=== PATIENT | female | born 1965 | race Two or more races ===

== ENCOUNTER 2016-11-02 13:47 | Inpatient (IN) | payer OTHER ==
[2016-11-02 18:24] VITALS: BMI 37.9
--- NOTE | 2016-11-02 19:44 | HP ---
CIWA Score - CIWA Score Nausea/Vomitin-Mild Nausea/No Vomiting Muscle Tremors: 4-Moderate,w/Arms Extend Anxiety: 4-Mod. Anxious/Guarded Agitation: 4-Moderately Restless Paroxysmal Sweats: 1-Minimal Palms Moist Orientation: 1-Uncertain about Date Tacttile Disturbances: 0-None Auditory Disturbances: 0-None Visual Disturbances: 0-None Headache: 1-Very Mild CIWA-Ar Total Score: 16 Admission ROS BHS - HPI Chief Complaint: WITHDRAWAL SX Allergies/Adverse Reactions: Allergies Allergy/AdvReac Type Severity Reaction Status Date / Time Penicillins Allergy Severe Swelling Verified 11/02/16 19:16 History of Present Illness: 50 YEARS OLD FEMALE WITH LONG HISTORY OF ALCOHOL NICOTINE DEPENDENCE, HAS HYPERTENSION DIABETES II GERD HYPERCHOLESTERLEMIA 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, HAS SCHIZOPHRENIA IS ADMITTED TO DETOX Exam Limitations: No Limitations - Ebola screening Have you traveled outside of the country in the last 21 days: No Have you had contact with anyone from an Ebola affected area: No Have you been sick,other than usual withdrawal symptoms: No Do you have a fever: No - Review of Systems Constitutional: Chills, Changes in sleep, Weight Stable EENT: reports: No Symptoms Reported Respiratory: reports: SOB with Exertion, Productive cough (YELLOWISH) Cardiac: reports: No Symptoms Reported GI: reports: Nausea, Poor Fluid Intake, Indigestion, Abdominal cramping : reports: No Symptoms Reported Musculoskeletal: reports: Back Pain, Joint Pain, Muscle Pain, Neck Pain (LEGS) Integumentary: reports: Rash (UNDER BOTH BREASTS) Neuro: reports: Tremors Endocrine: reports: No Symptoms Reported Hematology: reports: No Symptoms Reported Psychiatric: reports: Judgement Intact, Anxious, Depressed Other Systems: Reviewed and Negative Patient History - Patient Medical History Hx Anemia: No Hx Asthma: No Hx Chronic Obstructive Pulmonary Disease (COPD): No Hx Cancer: No Hx Cardiac Disorders: No Hx Congestive Heart Failure: No Hx Hypertension: Yes Hx Hypercholesterolemia: Yes Hx Pacemaker: No HX Cerebrovascular Accident: No Hx Seizures: No Hx Dementia: No Hx Diabetes: Yes Hx Gastrointestinal Disorders: Yes Hx Liver Disease: No Hx Genitourinary Disorders: No Hx Sexually Transmitted Disorders: No Hx Renal Disease (ESRD): No Hx Thyroid Disease: No Hx Human Immunodeficiency Virus (HIV): No Hx Hepatitis C: No Hx Depression: No Hx Suicide Attempt: No Hx Bipolar Disorder: No Hx Schizophrenia: Yes Other Medical History: OVARY CYST AND OVARIES REMOVED 2012 - Patient Surgical History Past Surgical History: Yes Hx Neurologic Surgery: No Hx Cataract Extraction: No Hx Cardiac Surgery: No Hx Lung Surgery: Yes (SCHEDULE FOR LEFTLOWER LUNG REMOVE AFTER DETOX) Hx Breast Surgery: No Hx Breast Biopsy: No Hx Abdominal Surgery: No Hx Appendectomy: No Hx Cholecystectomy: No Hx Genitourinary Surgery: No Hx Section: No Hx Orthopedic Surgery: No Hx Hysterectomy: No Other Surgical History: OVARIES REMOVED 2011 Anesthesia Reaction: No - PPD History Previous Implant?: Yes Documented Results: Negative w/o proof Implanted On Prior [facility] Admission?: No PPD to be Administered?: Yes - Reproductive History Patient is a Female of Child Bearing Age (11 -55 yrs old): Yes Last Menstrual Period: 11/01/09 Patient : No - Smoking Cessation Smoking history: Current every day smoker Have you smoked in the past 12 months: Yes Aproximately how many cigarettes per day: 20 Cigars Per Day: 0 Hx Chewing Tobacco Use: No Initiated information on smoking cessation: Yes 'Breaking Loose' booklet given: 11/02/16 - Substance & Tx. History Hx Alcohol Use: Yes Hx Substance Use: Yes Substance Use Type: Alcohol, Marijuana Hx Substance Use Treatment: Yes - Substances Abused Alcohol Route: Oral Frequency: Daily Amount used: liquor- 3 pints Age of first use: 10 Date of Last Use: 11/01/16 Family Disease History - Family Disease History Family Disease History: Diabetes: Father (), Mother, Heart Disease: Father, Mother, Other: Father, Mother, Brother (HIV) Admission Physical Exam S - Vital Signs Vital Signs: Vital Signs - 24 hr 11/02/16 18:20 Temperature 98.2 F Pulse Rate 93 H Respiratory 20 Rate Blood Pressure 164/87 - Physical General Appearance: Yes: Appropriately Dressed, Mild Distress, Obese, Tremorous , Irritable, Sweating, Anxious HEENTM: Yes: Hearing grossly Normal, Normal ENT Inspection, Normocephalic, Normal Voice Respiratory: Yes: Chest Non-Tender, Lungs Clear, Normal Breath Sounds, No Respiratory Distress, No Accessory Muscle Use Neck: Yes: Supple, Trachea in good position Breast: Yes: Breasts Symetrical Cardiology: Yes: Regular Rhythm, S1, S2, Tachycardia Abdominal: Yes: Non Tender, Soft Genitourinary: Yes: Within Normal Limits Back: Yes: Normal Inspection Musculoskeletal: Yes: full range of Motion, Gait Steady, Back pain, Muscle Pain (RIGHT KNEE) Extremities: Yes: Normal Inspection, Normal Range of Motion, Non-Tender, Tremors Neurological: Yes: Alert, Motor Strength 5/5, Normal Response, Depressed Affect Integumentary: Yes: Warm, Rash (UNDER BOTH BREATHS) Lymphatic: Yes: Within Normal Limits - Diagnostic (1) Alcohol dependence with uncomplicated withdrawal Current Visit: Yes Status: Acute (2) Diabetes mellitus type II, controlled Current Visit: Yes Status: Chronic Qualifiers: Diabetes mellitus complication status: with neurologic complications Diabetes mellitus complication detail: with other neurological complication Diabetes mellitus superintendent container terminal insulin use: with superintendent container terminal use Qualified Code(s): E11.49 - Type 2 diabetes mellitus with other diabetic neurological complication; Z79.4 - terminal system operator (current) use of insulin (3) Hypertension Current Visit: Yes Status: Chronic Qualifiers: Hypertension type: essential hypertension Qualified Code(s): I10 - Essential (primary) hypertension (4) GERD (gastroesophageal reflux disease) Current Visit: Yes Status: Chronic Qualifiers: Esophagitis presence: without esophagitis Qualified Code(s): K21.9 - Gastro-esophageal reflux disease without esophagitis (5) Hyperlipidemia Current Visit: Yes Status: Chronic Qualifiers: Hyperlipidemia type: pure hypercholesterolemia Qualified Code(s): E78.00 - Pure hypercholesterolemia, unspecified; E78.0 - Pure hypercholesterolemia (6) Neuropathy Current Visit: Yes Status: Chronic (7) Lung cancer Current Visit: Yes Status: Chronic Qualifiers: Laterality: left Lung location: lower lobe of lung Qualified Code(s): C34.32 - Malignant neoplasm of lower lobe, left bronchus or lung Comment: SCHEDULED TO HAVE SURGICAL REMOVE AFTER DETOX (8) Nicotine dependence Current Visit: Yes Status: Acute Qualifiers: Nicotine product type: cigarettes Substance use status: in withdrawal Qualified Code(s): F17.213 - Nicotine dependence, cigarettes, with withdrawal (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
[2016-11-02] MEDS ORDERED: MENTHOL/PHENOL 1 EACH UD MM PRN (19:51)
[2016-11-02] MEDS ORDERED: MAG HYDROX/AL HYDROX/SIMETH 30 ML UNIT-DOSE CUP PO PRN (19:51)
[2016-11-02] MEDS ORDERED: NICOTINE POLACRILEX 4 MG GUM BUC PRN (19:51)
[2016-11-02] MEDS ORDERED: guaiFENesin/D-METHORPHAN HB 10 ML UNIT-DOSE CUPS PO PRN (19:51)
[2016-11-02] MEDS ORDERED: hydrOXYzine PAMOATE 50 MG CAPSULE (FP) PO PRN (19:51)
[2016-11-02] MEDS ORDERED: chlordiazePOXIDE HCL 25 MG CAPSULE PO PRN (19:51)
[2016-11-02] MEDS ORDERED: diphenhydrAMINE HCL 50 MG CAPSULE PO PRN (19:51)
[2016-11-02] MEDS ORDERED: LOPERAMIDE HCL 2 MG CAPSULE PO PRN (19:51)
[2016-11-02] MEDS ORDERED: P-EPHED 60MG/TRIPROLIDI 2.5MG TABLET PO PRN (19:51)
[2016-11-02] MEDS ORDERED: MAGNESIUM HYDROX 2400MG/30ML ORAL SUSPENSION 30 ML CUP PO PRN (19:51)
[2016-11-02] MEDS ORDERED: MAGNESIUM CITRATE 300 ML BOTTLE PO PRN (19:51)
[2016-11-02] MEDS ORDERED: GABAPENTIN 300 MG CAPSULE (FP) PO SCH (20:00)
[2016-11-02] MEDS ORDERED: ATORVASTATIN CA 40 MG TABLET (FP) ONE (21:40)
[2016-11-02] MEDS: RANITIDINE HCL 150 MG TABLET (FP) PO SCH (22:47)
[2016-11-02] MEDS: chlordiazePOXIDE HCL 25 MG CAPSULE PO SCH (22:47)
[2016-11-02] MEDS: DOCUSATE SODIUM 100 MG CAPSULE (FP) PO SCH (22:47)
[2016-11-02] MEDS: THIAMINE HCL 100 MG TABLET (FP) PO SCH (22:47)
[2016-11-02] MEDS: ACETAMINOPHEN 325 MG TABLET (FP) PO PRN (22:48)
[2016-11-02] MEDS: ATORVASTATIN CA 80 MG TABLET (FP) PO SCH (22:51)
[2016-11-02] MEDS: CLOTRIMAZOLE 1% CREAM 15 GM TUBE TP SCH (22:51)
[2016-11-03 01:52] LABS: URINE APPEARANCE CLEAR; URINE BLOOD NEGATIVE (NEGATIVE); URINE COLOR AMBER; URINE GLUCOSE (UA) 1+ (NEGATIVE); URINE KETONE TRACE (NEGATIVE); URINE LEUK ESTERASE NEGATIVE (NEGATIVE); URINE NITRITE NEGATIVE (NEGATIVE); URINE UROBILINOGEN 4.0 E.U/dl E.U./dl (0.2-1.0)
[2016-11-03 03:04] LABS: URINE PROTEIN 3+ (NEGATIVE)
[2016-11-03 03:09] LABS: URINE BACTERIA RARE /hpf (NONE SEEN); URINE MUCUS MODERATE; URINE RBC 3 /hpf (0-3); URINE WBC 12 /hpf (3-5)
[2016-11-03] MEDS: NAPROXEN 500 MG TABLET (FP) PO PRN ×2 (04:47→22:57)
[2016-11-03] MEDS: GABAPENTIN 300 MG CAPSULE (FP) PO SCH ×3 (05:50→22:58)
[2016-11-03] MEDS: chlordiazePOXIDE HCL 25 MG CAPSULE PO SCH ×4 (05:50→22:57)
[2016-11-03] MEDS: INSULIN SLIDING SCALE (NOVOLOG) 1 VIAL SQ SCH ×2 (07:32→17:59)
[2016-11-03 10:41] LABS: MCH 31.9 pg (25.7-33.7); MCHC 33.6 g/dl (32.0-36.0); MEAN CELL VOLUME 95.2 fl (80-96); MEAN PLT VOLUME 9.2 fl (7.5-11.1); PLATELET COUNT 174 K/MM3 (134-434); WHITE BLOOD COUNT 9.1 K/mm3 (4.0-10.0)
[2016-11-03] MEDS: ASPIRIN 81 MG CHEWABLE TABLETS PO SCH (10:52)
[2016-11-03] MEDS: PRENATAL VITAMINS W/ FOLIC ACID TABLET (FP) PO SCH (10:52)
[2016-11-03] MEDS: RANITIDINE HCL 150 MG TABLET (FP) PO SCH ×2 (10:52→22:57)
[2016-11-03] MEDS: DOCUSATE SODIUM 100 MG CAPSULE (FP) PO SCH ×2 (10:53→22:57)
[2016-11-03] MEDS: ACETAMINOPHEN 325 MG TABLET (FP) PO PRN (10:54)
[2016-11-03] MEDS: NICOTINE 21 MG/24 HOURS TOPICAL PATCH TD SCH (10:55)
[2016-11-03 11:13] LABS: ALBUMIN 4.1 g/dl (3.4-5.0); BILIRUBIN,TOTAL 0.8 mg/dL (0.2-1.0); CALCIUM 8.8 mg/dL (8.5-10.1); COCKROFT - GAULT 84.031; CREATININE 1.2 mg/dL (0.55-1.02); TOT PROT 6.9 g/dl (6.4-8.2)
[2016-11-03] MEDS: OXYBUTYNIN CHLORIDE 5 MG TABLET PO SCH (11:47)
[2016-11-03] MEDS: CLOTRIMAZOLE 1% CREAM 15 GM TUBE TP SCH ×2 (11:48→22:56)
--- NOTE | 2016-11-03 17:00 | CONSULT ---
[facility] Psychiatric Consult - Data Date of interview: 11/03/16 Admission source: [facility] Identifying data: First admission to [facility] for this 50 y/o female seking detox treatment for alcohol and marijuana dependence.Patient is single,a mother of two,domiciled,unemployed and supported on SSI benefits. Substance Abuse History: - Smoking Cessation. Smoking history: Current every day smoker. Have you smoked in the past 12 months: Yes. Aproximately how many cigarettes per day: 20. Cigars Per Day: 0. Hx Chewing Tobacco Use: No. Initiated information on smoking cessation: Yes. 'Breaking Loose' booklet given : 11/02/16. - Substance & Tx. History. Hx Alcohol Use: Yes. Hx Substance Use : Yes. Substance Use Type: Alcohol, Marijuana. Hx Substance Use Treatment: Yes. - Substances Abused. Alcohol. Route: Oral. Frequency: Daily. Amount used: liquor- 3 pints. Age of first use: 10. Date of Last Use: . Confirmed by patient. Medical History: Diabetes mellitus,hypertension,GERD,vascular stasis (both lower extremities),neuropathy,hypercholesterolemia,lung cancer (self-report) and a history of bilateral oophorectomy (2011). Psychiatric History: Patient admits to a history of two psychiatric hospitalizations.Last hospitalized four years ago at [facility].Known also to [place].Ms Delacruz reports the diagnosis of Schizophrenia.She " used to be " on risperdal 2 mg/day + trazodone 200 mg/hs + seroquel (dose not recalled).Patient is an unreliable/forgetful historian.She insists that she took her medications about a week ago.Current site of pychiatric OPD care : unclear.Patient denies history of suicde attempts. Physical/Sexual Abuse/Trauma History: patient denies history of abuse. Additional Comment: Urine Drug Screen Results: THC-Marijuana.Noted. Mental Status Exam - Mental Status Exam Alert and Oriented to: Time, Place, Person Cognitive Function: Grossly Intact Patient Appearance: Well Groomed Mood: Withdrawn, Anxious, Apprehensive Affect: Mood Congruent Patient Behavior: Fatigued, Cooperative Speech Pattern: Clear Voice Loudness: Normal Thought Process: Goal Oriented Thought Disorder: Not Present Hallucinations: Denies Suicidal Ideation: Denies Homicidal Ideation: Denies Insight/Judgement: Poor Sleep: Poorly, Difficulty falling asleep Appetite: Good Muscle strength/Tone: Normal Gait/Station: Other (uses a cane for ambulation) Psychiatric Findings - Problem List ([place] 1, 2,3) (1) Schizophrenia Current Visit: Yes Status: Chronic Qualifiers: Schizophrenia type: disorganized schizophrenia Qualified Code(s): F20.1 - Disorganized schizophrenia (2) Alcohol dependence with uncomplicated withdrawal Current Visit: Yes Status: Acute (3) Marijuana dependence Current Visit: Yes Status: Acute (4) Nicotine dependence Current Visit: Yes Status: Acute Qualifiers: Nicotine product type: cigarettes Substance use status: in withdrawal Qualified Code(s): F17.213 - Nicotine dependence, cigarettes, with withdrawal (5) Diabetes mellitus type II, controlled Current Visit: Yes Status: Chronic Qualifiers: Diabetes mellitus complication status: with neurologic complications Diabetes mellitus complication detail: with other neurological complication Diabetes mellitus gasket inspector insulin use: with group home use Qualified Code(s): E11.49 - Type 2 diabetes mellitus with other diabetic neurological complication (6) 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 Comment: UNDER BOTH BREASTS (7) GERD (gastroesophageal reflux disease) Current Visit: Yes Status: Chronic Qualifiers: Esophagitis presence: without esophagitis Qualified Code(s): K21.9 - Gastro-esophageal reflux disease without esophagitis (8) Hyperlipidemia Current Visit: Yes Status: Chronic Qualifiers: Hyperlipidemia type: pure hypercholesterolemia Qualified Code(s): E78.00 - Pure hypercholesterolemia, unspecified; E78.0 - Pure hypercholesterolemia (9) Hypertension Current Visit: Yes Status: Chronic Qualifiers: Hypertension type: essential hypertension Qualified Code(s): I10 - Essential (primary) hypertension (10) Lung cancer Current Visit: Yes Status: Chronic Qualifiers: Laterality: left Lung location: lower lobe of lung Qualified Code(s): C34.32 - Malignant neoplasm of lower lobe, left bronchus or lung Comment: SCHEDULED TO HAVE SURGICAL REMOVE AFTER DETOX (11) Neuropathy Current Visit: Yes Status: Chronic (12) Use of cane as ambulatory aid Current Visit: Yes Status: Chronic Comment: RIGHT LEG WEAKNESS (13) Insomnia Current Visit: Yes Status: Acute - Initial Treatment Plan Initial Treatment Plan: Psychoeducation.Detoxification.Review of pharmacy claims reveals scripts filled for trazodone,sertraline and risperdal on 08/28/16 @ [facility].Compliance remains questionable.Therefore will restart medications as follows : zoloft 50 mg po daily + risperdal 1 mg po bid + trazodone 50 mg po hs.Side effects/benefits of each drug are discussed with the patient.She endorses history of good tolerability/efficacy and she requests that these three drugs be added to the current regime.Observation.
[2016-11-03] MEDS: INSULIN DETEMIR 100 UNITS/ML MDV SQ SCH (17:47)
--- NOTE | 2016-11-03 18:51 | PN ---
S CIWA - CIWA Score Nausea/Vomitin Muscle Tremors: 4-Moderate,w/Arms Extend Anxiety: 2 Agitation: 4-Moderately Restless Paroxysmal Sweats: 3 Orientation: 0-Oriented Tacttile Disturbances: 0-None Auditory Disturbances: 2-Mild Harshness/Frighten Visual Disturbances: 0-None Headache: 3-Moderate CIWA-Ar Total Score: 21 BHS Progress Note (SOAP) Subjective: Lower Back Ache, Stomach Cramping, H/A, Body Aches. Objective: PT. A & O X 3, OBSERVED AMBULATING ON UNIT. 11/03/16 18:47 Vital Signs Temperature 98.2 F 11/03/16 18:28 Pulse Rate 62 11/03/16 18:28 Respiratory Rate 16 11/03/16 18:28 Blood Pressure 114/73 11/03/16 18:28 O2 Sat by Pulse Oximetry (%) Laboratory Tests 11/02/16 11/03/16 11/03/16 00:34 05:48 07:50 WBC 9.1 RBC 4.48 Hgb 14.3 Hct 42.7 MCV 95.2 MCHC 33.6 RDW 15.0 Plt Count 174 MPV 9.2 Sodium Potassium Chloride Carbon Dioxide Anion Gap BUN Creatinine Creat Clearance w eGFR POC Glucometer 174 Random Glucose Calcium Total Bilirubin AST ALT Alkaline Phosphatase Total Protein Albumin Urine Color Emani Urine Appearance Clear Urine pH 5.0 Ur Specific [place] > 1.030 H Urine Protein 3+ H Urine Glucose (UA) 1+ H Urine Ketones Trace H Urine Blood Negative Urine Nitrite Negative Urine Bilirubin 2.0 Urine Urobilinogen 4.0 e.u/dl H Ur Leukocyte Esterase Negative Urine RBC 3 Urine WBC 12 Ur Epithelial Cells Moderate Urine Bacteria Rare Urine Mucus Moderate RPR Titer 11/03/16 11/03/16 11/03/16 07:50 07:50 16:23 WBC RBC Hgb Hct MCV MCHC RDW Plt Count MPV Sodium 138 Potassium 4.0 Chloride 104 Carbon Dioxide 22 Anion Gap 12 BUN 25 H Creatinine 1.2 H Creat Clearance w eGFR 47.18 POC Glucometer 178 Random Glucose 163 H Calcium 8.8 Total Bilirubin 0.8 AST 18 ALT 20 Alkaline Phosphatase 94 Total Protein 6.9 Albumin 4.1 Urine Color Urine Appearance Urine pH Ur Specific [place] Urine Protein Urine Glucose (UA) Urine Ketones Urine Blood Urine Nitrite Urine Bilirubin Urine Urobilinogen Ur Leukocyte Esterase Urine RBC Urine WBC Ur Epithelial Cells Urine Bacteria Urine Mucus RPR Titer Nonreactive LABS NOTED. Assessment: 11/03/16 18:47 WITHDRAWAL SYMPTOMS. Plan: CONTINUE DETOX. REPEAT UA FOR ABNORMAL ADMISSION UA VALUES. D/C MAGNESIUM-CONTAINING MEDS. ADVISED PT. TO FOLLOW-UP WITH ROTARY SOIL STABILIZER OPERATOR AFTER DISCHARGE FROM DETOX FOR GENERAL MEDICAL ASSESSMENT AND FOR ABNORMAL ADMISSION RENAL VALUES (BUN, CREATININE, GFR ).
[2016-11-03] MEDS ORDERED: ATORVASTATIN CA 40 MG TABLET (FP) ONE (22:14)
[2016-11-03] MEDS: traZODone HCL 50 MG TABLET (FP) PO SCH (22:57)
[2016-11-03] MEDS: risperiDONE 1 MG TABLET (FP) PO SCH (23:25)
[2016-11-03] MEDS: THIAMINE HCL 100 MG TABLET (FP) PO SCH (23:25)
[2016-11-03] MEDS: ATORVASTATIN CA 80 MG TABLET (FP) PO SCH (23:25)
[2016-11-04] MEDS: chlordiazePOXIDE HCL 25 MG CAPSULE PO SCH ×3 (06:19→17:50)
[2016-11-04] MEDS: GABAPENTIN 300 MG CAPSULE (FP) PO SCH ×3 (06:20→22:13)
[2016-11-04] MEDS: INSULIN SLIDING SCALE (NOVOLOG) 1 VIAL SQ SCH ×2 (07:04→17:52)
[2016-11-04] MEDS: ASPIRIN 81 MG CHEWABLE TABLETS PO SCH (10:41)
[2016-11-04] MEDS: RANITIDINE HCL 150 MG TABLET (FP) PO SCH ×2 (10:41→22:13)
[2016-11-04] MEDS: PRENATAL VITAMINS W/ FOLIC ACID TABLET (FP) PO SCH (10:41)
[2016-11-04] MEDS: DOCUSATE SODIUM 100 MG CAPSULE (FP) PO SCH ×2 (10:41→22:13)
[2016-11-04] MEDS: NAPROXEN 500 MG TABLET (FP) PO PRN ×2 (10:41→22:13)
[2016-11-04] MEDS: CLOTRIMAZOLE 1% CREAM 15 GM TUBE TP SCH ×2 (10:42→22:16)
[2016-11-04] MEDS: OXYBUTYNIN CHLORIDE 5 MG TABLET PO SCH (10:42)
[2016-11-04] MEDS: SERTRALINE HCL 50 MG TABLET (FP) PO SCH (10:43)
[2016-11-04] MEDS: NICOTINE 21 MG/24 HOURS TOPICAL PATCH TD SCH (10:43)
[2016-11-04] MEDS: risperiDONE 1 MG TABLET (FP) PO SCH ×2 (14:04→22:13)
--- NOTE | 2016-11-04 14:11 | PN ---
[facility] CIWA - CIWA Score Nausea/Vomitin-No Nausea/No Vomiting Muscle Tremors: 4-Moderate,w/Arms Extend Anxiety: 3 Agitation: 3 Paroxysmal Sweats: 3 Orientation: 0-Oriented Tacttile Disturbances: 0-None Auditory Disturbances: 0-None Visual Disturbances: 0-None Headache: 0-None Present CIWA-Ar Total Score: 13 S Progress Note (SOAP) Subjective: Anxiety,tremors,sweating,interrupted sleep,restless Objective: 11/04/16 14:10 Vital Signs - 8 hr 11/04/16 11/04/16 11/04/16 06:48 11:11 13:40 Temperature 96.0 F L 97.3 F L 98.6 F Pulse Rate 71 91 H 88 Respiratory 18 20 18 Rate Blood Pressure 130/67 156/96 157/81 Laboratory Last Values WBC 9.1 K/mm3 (4.0-10.0) 11/03/16 07:50 RBC 4.48 M/mm3 (3.60-5.2) 11/03/16 07:50 Hgb 14.3 GM/dL (10.7-15.3) 11/03/16 07:50 Hct 42.7 % (32.4-45.2) 11/03/16 07:50 MCV 95.2 fl (80-96) 11/03/16 07:50 MCHC 33.6 g/dl (32.0-36.0) 11/03/16 07:50 RDW 15.0 % (11.6-15.6) 11/03/16 07:50 Plt Count 174 K/MM3 (134-434) 11/03/16 07:50 MPV 9.2 fl (7.5-11.1) 11/03/16 07:50 Sodium 138 mmol/L (136-145) 11/03/16 07:50 Potassium 4.0 mmol/L (3.5-5.1) 11/03/16 07:50 Chloride 104 mmol/L (98-107) 11/03/16 07:50 Carbon Dioxide 22 mmol/L (21-32) 11/03/16 07:50 Anion Gap 12 (8-16) 11/03/16 07:50 BUN 25 mg/dL (7-18) H 11/03/16 07:50 Creatinine 1.2 mg/dL (0.55-1.02) H 11/03/16 07:50 Creat Clearance w eGFR 47.18 (>60) 11/03/16 07:50 POC Glucometer 175 UNITS (()) 11/04/16 06:19 Random Glucose 163 mg/dL (74-106) H 11/03/16 07:50 Calcium 8.8 mg/dL (8.5-10.1) 11/03/16 07:50 Total Bilirubin 0.8 mg/dL (0.2-1.0) 11/03/16 07:50 AST 18 U/L (15-37) 11/03/16 07:50 ALT 20 U/L (12-78) 11/03/16 07:50 Alkaline Phosphatase 94 U/L (45-117) 11/03/16 07:50 Total Protein 6.9 g/dl (6.4-8.2) 11/03/16 07:50 Albumin 4.1 g/dl (3.4-5.0) 11/03/16 07:50 Urine Color Emani 11/02/16 00:34 Urine Appearance Clear 11/02/16 00:34 Urine pH 5.0 (5.0-8.0) 11/02/16 00:34 Ur Specific [place] > 1.030 (1.005-1.025) H 11/02/16 00:34 Urine Protein 3+ (NEGATIVE) H 11/02/16 00:34 Urine Glucose (UA) 1+ (NEGATIVE) H 11/02/16 00:34 Urine Ketones Trace (NEGATIVE) H 11/02/16 00:34 Urine Blood Negative (NEGATIVE) 11/02/16 00:34 Urine Nitrite Negative (NEGATIVE) 11/02/16 00:34 Urine Bilirubin 2.0 (NEGATIVE) 11/02/16 00:34 Urine Urobilinogen 4.0 e.u/dl E.U./dl (0.2-1.0) H 11/02/16 00:34 Ur Leukocyte Esterase Negative (NEGATIVE) 11/02/16 00:34 Urine RBC 3 /hpf (0-3) 11/02/16 00:34 Urine WBC 12 /hpf (3-5) 11/02/16 00:34 Ur Epithelial Cells Moderate /hpf (FEW) 11/02/16 00:34 Urine Bacteria Rare /hpf (NONE SEEN) 11/02/16 00:34 Urine Mucus Moderate 11/02/16 00:34 RPR Titer Nonreactive (NONREACTIVE) 11/03/16 07:50 labs noted,repeat u/a pending Assessment: 11/04/16 14:11 Withdrawal sx. Plan: Continue detox
[2016-11-04] MEDS: INSULIN DETEMIR 100 UNITS/ML MDV SQ SCH (17:50)
[2016-11-04 18:16] LABS: URINE APPEARANCE CLEAR; URINE BILIRUBIN NEGATIVE (NEGATIVE); URINE BLOOD NEGATIVE (NEGATIVE); URINE COLOR LTYELLOW; URINE GLUCOSE (UA) NEGATIVE (NEGATIVE); URINE KETONE NEGATIVE (NEGATIVE); URINE NITRITE NEGATIVE (NEGATIVE); URINE PROTEIN NEGATIVE (NEGATIVE); URINE UROBILINOGEN NEGATIVE E.U./dl (0.2-1.0)
[2016-11-04 18:41] LABS: URINE LEUK ESTERASE TRACE (NEGATIVE)
[2016-11-04 18:46] LABS: URINE BACTERIA RARE /hpf (NONE SEEN); URINE RBC 1 /hpf (0-3); URINE WBC 4 /hpf (3-5)
[2016-11-04] MEDS ORDERED: ATORVASTATIN CA 40 MG TABLET (FP) ONE (21:14)
[2016-11-04] MEDS: traZODone HCL 50 MG TABLET (FP) PO SCH (22:13)
[2016-11-04] MEDS: THIAMINE HCL 100 MG TABLET (FP) PO SCH (22:13)
[2016-11-04] MEDS: chlordiazePOXIDE 5 MG CAPSULE PO SCH (22:14)
[2016-11-04] MEDS: ATORVASTATIN CA 80 MG TABLET (FP) PO SCH (22:14)
[2016-11-05] MEDS: chlordiazePOXIDE 5 MG CAPSULE PO SCH ×3 (06:23→17:49)
[2016-11-05] MEDS: GABAPENTIN 300 MG CAPSULE (FP) PO SCH ×3 (06:24→22:13)
[2016-11-05] MEDS: INSULIN SLIDING SCALE (NOVOLOG) 1 VIAL SQ SCH ×2 (07:05→17:49)
[2016-11-05] MEDS: DOCUSATE SODIUM 100 MG CAPSULE (FP) PO SCH ×2 (10:28→22:12)
[2016-11-05] MEDS: ASPIRIN 81 MG CHEWABLE TABLETS PO SCH (10:28)
[2016-11-05] MEDS: PRENATAL VITAMINS W/ FOLIC ACID TABLET (FP) PO SCH (10:28)
[2016-11-05] MEDS: OXYBUTYNIN CHLORIDE 5 MG TABLET PO SCH (10:28)
[2016-11-05] MEDS: SERTRALINE HCL 50 MG TABLET (FP) PO SCH (10:28)
[2016-11-05] MEDS: CLOTRIMAZOLE 1% CREAM 15 GM TUBE TP SCH ×2 (10:29→22:16)
[2016-11-05] MEDS: NICOTINE 21 MG/24 HOURS TOPICAL PATCH TD SCH (10:30)
[2016-11-05] MEDS: risperiDONE 1 MG TABLET (FP) PO SCH ×2 (10:48→22:13)
[2016-11-05] MEDS: RANITIDINE HCL 150 MG TABLET (FP) PO SCH ×2 (10:48→22:13)
--- NOTE | 2016-11-05 11:34 | EKG ---
Test Reason : Blood Pressure : / mmHG Vent. Rate : 065 BPM Atrial Rate : 065 BPM P-R Int : 132 ms QRS Dur : 090 ms QT Int : 402 ms P-R-T Axes : 053 014 -02 degrees QTc Int : 418 ms NORMAL SINUS RHYTHM POSSIBLE LEFT ATRIAL ENLARGEMENT BORDERLINE ECG NO PREVIOUS ECGS AVAILABLE Confirmed by MAYDA STOCKTON, FARNAZ ([id number]) on 11/05/2016 11:34:00 AM Referred By: Confirmed By:FARNAZ OHARA MD
--- NOTE | 2016-11-05 14:59 | PN ---
BHS Progress Note (SOAP) Subjective: Tremors, Lower Back Ache, H/A, Body Aches. Objective: PT. A & O X 3, OBSERVED AMBULATING ON UNIT. NO ACUTE DISTRESS. 11/05/16 14:57 Vital Signs Temperature 97.0 F L 11/05/16 10:09 Pulse Rate 104 H 11/05/16 10:09 Respiratory Rate 20 11/05/16 10:09 Blood Pressure 150/97 11/05/16 10:09 O2 Sat by Pulse Oximetry (%) Laboratory Tests 11/02/16 11/03/16 11/03/16 00:34 05:48 07:50 WBC 9.1 RBC 4.48 Hgb 14.3 Hct 42.7 MCV 95.2 MCHC 33.6 RDW 15.0 Plt Count 174 MPV 9.2 Sodium Potassium Chloride Carbon Dioxide Anion Gap BUN Creatinine Creat Clearance w eGFR POC Glucometer 174 Random Glucose Calcium Total Bilirubin AST ALT Alkaline Phosphatase Total Protein Albumin Urine Color Emani Urine Appearance Clear Urine pH 5.0 Ur Specific [place] > 1.030 H Urine Protein 3+ H Urine Glucose (UA) 1+ H Urine Ketones Trace H Urine Blood Negative Urine Nitrite Negative Urine Bilirubin 2.0 Urine Urobilinogen 4.0 e.u/dl H Ur Leukocyte Esterase Negative Urine RBC 3 Urine WBC 12 Ur Epithelial Cells Moderate Urine Bacteria Rare Urine Mucus Moderate RPR Titer 11/03/16 11/03/16 11/03/16 07:50 07:50 16:23 WBC RBC Hgb Hct MCV MCHC RDW Plt Count MPV Sodium 138 Potassium 4.0 Chloride 104 Carbon Dioxide 22 Anion Gap 12 BUN 25 H Creatinine 1.2 H Creat Clearance w eGFR 47.18 POC Glucometer 178 Random Glucose 163 H Calcium 8.8 Total Bilirubin 0.8 AST 18 ALT 20 Alkaline Phosphatase 94 Total Protein 6.9 Albumin 4.1 Urine Color Urine Appearance Urine pH Ur Specific [place] Urine Protein Urine Glucose (UA) Urine Ketones Urine Blood Urine Nitrite Urine Bilirubin Urine Urobilinogen Ur Leukocyte Esterase Urine RBC Urine WBC Ur Epithelial Cells Urine Bacteria Urine Mucus RPR Titer Nonreactive 11/04/16 11/04/16 11/05/16 06:19 18:01 06:27 WBC RBC Hgb Hct MCV MCHC RDW Plt Count MPV Sodium Potassium Chloride Carbon Dioxide Anion Gap BUN Creatinine Creat Clearance w eGFR POC Glucometer 175 197 Random Glucose Calcium Total Bilirubin AST ALT Alkaline Phosphatase Total Protein Albumin Urine Color Ltyellow Urine Appearance Clear Urine pH 5.0 Ur Specific [place] 1.010 Urine Protein Negative Urine Glucose (UA) Negative Urine Ketones Negative Urine Blood Negative Urine Nitrite Negative Urine Bilirubin Negative Urine Urobilinogen Negative Ur Leukocyte Esterase Trace H Urine RBC 1 Urine WBC 4 Ur Epithelial Cells Rare Urine Bacteria Rare Urine Mucus RPR Titer LABS NOTED. RESULTS OF REPEAT UA NOTED. NO NEED FOR FURTHER ACTION AT THIS TIME. 11/05/16 14:59 Assessment: 11/05/16 15:00 WITHDRAWAL SYMPTOMS. Plan: CONTINUE DETOX.
[2016-11-05] MEDS ORDERED: INSULIN (NOVOLOG) ASPART 100 UNITS/ML 10ML VIAL ONE (16:49)
[2016-11-05] MEDS: INSULIN DETEMIR 100 UNITS/ML MDV SQ SCH (17:49)
[2016-11-05] MEDS ORDERED: chlordiazePOXIDE 5 MG CAPSULE ONE (21:40)
[2016-11-05] MEDS ORDERED: ATORVASTATIN CA 40 MG TABLET (FP) PO SCH (22:00)
[2016-11-05] MEDS: THIAMINE HCL 100 MG TABLET (FP) PO SCH (22:12)
[2016-11-05] MEDS: NAPROXEN 500 MG TABLET (FP) PO PRN (22:12)
[2016-11-05] MEDS: traZODone HCL 50 MG TABLET (FP) PO SCH (22:12)
[2016-11-05] MEDS: chlordiazePOXIDE HCL 10 MG CAPSULE PO SCH (22:13)
[2016-11-06] MEDS: chlordiazePOXIDE HCL 10 MG CAPSULE PO SCH (05:26)
[2016-11-06] MEDS: GABAPENTIN 300 MG CAPSULE (FP) PO SCH (05:27)
[2016-11-06] MEDS ORDERED: INSULIN (NOVOLOG) ASPART 100 UNITS/ML 10ML VIAL ONE (06:13)
[2016-11-06] MEDS: INSULIN SLIDING SCALE (NOVOLOG) 1 VIAL SQ SCH (06:14)
--- NOTE | 2016-11-06 09:08 | DS ---
[facility] Detox Discharge Summary Admission Date: 11/02/16 Discharge Date: 11/06/16 - History Present History: Alcohol Dependence, Cannabis Dependence - Physical Exam Results Vital Signs: Vital Signs Temperature 97.7 F 11/06/16 06:00 Pulse Rate 82 11/06/16 06:00 Respiratory Rate 18 11/06/16 06:00 Blood Pressure 132/76 11/06/16 06:00 O2 Sat by Pulse Oximetry (%) - Treatment Hospital Course: Detox Protocol Followed, Detoxed Safely, Responded well, Discharged Condition Good - Medication Discharge Medications: Ambulatory Orders Atorvastatin Ca [Lipitor] 80 mg PO HS 11/02/16 Benazepril HCl 15 mg PO DAILY 11/02/16 Docusate Sodium [Colace -] 100 mg PO DAILY 11/02/16 Gabapentin [Neurontin -] 300 mg PO TID 11/02/16 Gemfibrozil [Lopid -] 600 mg PO BID 11/02/16 Insulin Glargine,Hum.rec.anlog [Lantus Solostar PEN (NF)] 0 units SQ HS Metformin HCl [Glucophage -] 500 mg PO BID 11/02/16 Ranitidine [Zantac -] 150 mg PO DAILY 11/02/16 Risperidone [Risperdal] 2 mg PO DAILY 11/02/16 Sertraline HCl [Zoloft -] 100 mg PO DAILY 11/02/16 Trazodone HCl [Desyrel -] 100 mg PO HS 11/02/16 Risperidone [Risperdal] 2 mg PO HS #30 tablet 11/03/16 Sertraline HCl [Zoloft -] 50 mg PO DAILY #30 tablet 11/03/16 Trazodone HCl [Desyrel -] 50 mg PO HS #30 tablet 11/03/16 - Diagnosis (1) Alcohol dependence with uncomplicated withdrawal Current Visit: Yes Status: Chronic (2) Marijuana dependence Current Visit: Yes Status: Chronic (3) Nicotine dependence Current Visit: Yes Status: Chronic Qualifiers: Nicotine product type: cigarettes Substance use status: uncomplicated Qualified Code(s): F17.210 - Nicotine dependence, cigarettes, uncomplicated (4) Diabetes mellitus type II, controlled Current Visit: Yes Status: Chronic Qualifiers: Diabetes mellitus complication status: with neurologic complications Diabetes mellitus complication detail: with unspecified neuropathy Diabetes mellitus correction insulin use: with intermediate project manager use Qualified Code(s): E11.40 - Type 2 diabetes mellitus with diabetic neuropathy, unspecified; Z79.4 - termite treater helper (current) use of insulin (5) GERD (gastroesophageal reflux disease) Current Visit: Yes Status: Chronic Qualifiers: Esophagitis presence: without esophagitis Qualified Code(s): K21.9 - Gastro-esophageal reflux disease without esophagitis (6) Hyperlipidemia Current Visit: Yes Status: Chronic Qualifiers: Hyperlipidemia type: pure hypercholesterolemia Qualified Code(s): E78.00 - Pure hypercholesterolemia, unspecified; E78.0 - Pure hypercholesterolemia (7) Hypertension Current Visit: Yes Status: Chronic Qualifiers: Hypertension type: essential hypertension Qualified Code(s): I10 - Essential (primary) hypertension (8) Lung cancer Current Visit: Yes Status: Chronic Qualifiers: Laterality: left Lung location: lower lobe of lung Qualified Code(s): C34.32 - Malignant neoplasm of lower lobe, left bronchus or lung (9) Neuropathy Current Visit: Yes Status: Chronic (10) Schizophrenia Current Visit: Yes Status: Chronic Qualifiers: Schizophrenia type: disorganized schizophrenia Qualified Code(s): F20.1 - Disorganized schizophrenia (11) Use of cane as ambulatory aid Current Visit: Yes Status: Chronic - AMA Did Patient Leave Against Medical Advice: No
[2016-11-06] MEDS: CLOTRIMAZOLE 1% CREAM 15 GM TUBE TP SCH (09:30)
[2016-11-06] MEDS: SERTRALINE HCL 50 MG TABLET (FP) PO SCH (09:35)
[2016-11-06] MEDS: DOCUSATE SODIUM 100 MG CAPSULE (FP) PO SCH (09:35)
[2016-11-06] MEDS: OXYBUTYNIN CHLORIDE 5 MG TABLET PO SCH (09:35)
[2016-11-06] MEDS: RANITIDINE HCL 150 MG TABLET (FP) PO SCH (09:35)
[2016-11-06] MEDS: PRENATAL VITAMINS W/ FOLIC ACID TABLET (FP) PO SCH (09:35)
[2016-11-06] MEDS: risperiDONE 1 MG TABLET (FP) PO SCH (09:35)
[2016-11-06] MEDS: ASPIRIN 81 MG CHEWABLE TABLETS PO SCH (09:35)
[2016-11-06 09:38] VITALS: BP 154/86; PULSE 120; TEMP 96.4
[2016-11-06] MEDS: NICOTINE 21 MG/24 HOURS TOPICAL PATCH TD SCH (09:39)
== END 2016-11-06 10:19 | disposition home or self-care (01) | DRG 775 ==
LOC: YASAS 13:47 → Y6N 19:22
PROVIDERS: ADMIT Internal Medicine; ATTEND Internal Medicine
PROC: HZ2ZZZZ Detoxification Services for Substance Abuse Treatment (ICD-10-PCS; principal; 2016-11-02)
DX: F10.230 Alcohol dependence with withdrawal, uncomplicated (principal); F12.20 Cannabis dependence, uncomplicated; F17.210 Nicotine dependence, cigarettes, uncomplicated; F20.1 Disorganized schizophrenia; E11.40 Type 2 diabetes mellitus with diabetic neuropathy, unspecified; Z79.4 Long term (current) use of insulin; K21.9 Gastro-esophageal reflux disease without esophagitis; E78.00 Pure hypercholesterolemia, unspecified; I10 Essential (primary) hypertension; C34.32 Malignant neoplasm of lower lobe, left bronchus or lung; G62.9 Polyneuropathy, unspecified; R26.2 Difficulty in walking, not elsewhere classified; Z99.89 Dependence on other enabling machines and devices; G47.00 Insomnia, unspecified; Z88.0 Allergy status to penicillin; E66.9 Obesity, unspecified; Z68.37 Body mass index [BMI] 37.0-37.9, adult
CPT/HCPCS: 36415; 80053; 81003; 81015; 85027; 86593; 86803; 93005; 93010; J2794